=== PATIENT | female | born 1940 | race Caucasian/White ===

== ENCOUNTER 2018-01-13 05:31 | Observation (INO) | payer MEDICARE, OTHER ==
[~2018-01-13] VITALS: Ht 165.1 cm; Wt 62.3 kg
[2018-01-13] MEDS ORDERED: LEVO50TA5 PO (05:58)
[2018-01-13] MEDS ORDERED: LEVO75TA5 PO (05:58)
[2018-01-13] MEDS ORDERED: ASPIRIN 81 MG TABLET CHEW PO ONE (06:00)
[2018-01-13] MEDS ORDERED: SODIUM CHLORIDE FLUSH 10ML SYR IVF ONE (06:00)
[2018-01-13] MEDS ORDERED: ASPIRIN 81 MG TABLET CHEW ONE (06:07)
[2018-01-13] MEDS ORDERED: NITROGLYCERIN SINGLE TAB 0.4 MG SL ONE (06:19)
[2018-01-13] MEDS ORDERED: NITROGLYCERIN SINGLE TAB 0.4 MG SL PRN (06:30)
[2018-01-13 06:31] LABS: BASOPHILS # (AUTO) 0.05 x10^3/uL (0-0.1); BASOPHILS % (AUTO) 0 % (0-1); EOSINOPHILS # (AUTO) 0.11 x10^3/uL (0-0.4); EOSINOPHILS % (AUTO) 1 % (1-7); LYMPHOCYTES # (AUTO) 1.53 x10^3/uL (1-3.4); LYMPHOCYTES % (AUTO) 12 % (22-44); MD NO; MEAN CORPUSCULAR VOLUME 94.2 fL (80-100); MEAN PLATELET VOLUME 7.8 fL (7.4-10.4); MONOCYTES # (AUTO) 0.61 x10^3/uL (0.2-0.8); MONOCYTES % (AUTO) 5 % (2-9); NEUTROPHILS # (AUTO) 10.43 x10^3/uL (1.8-6.8); NEUTROPHILS % (AUTO) 82 % (42-75); PLATELET COUNT 237 x10^3/uL (130-400); RED BLOOD COUNT 4.53 x10^6/uL (3.82-5.3); RED CELL DISTRIBUTION WIDTH 13.9 % (9.6-15.2)
[2018-01-13 06:41] LABS: ALBUMIN 3.5 g/dL (3.4-5.0); ANION GAP 5 mmol/L (5-15); CALCIUM 8.7 mg/dL (8.5-10.1); CHLORIDE 107 mmol/L (98-107); CREATININE 1.03 mg/dL (0.55-1.02)
[2018-01-13 06:45] LABS: TROPONIN I < 0.015 ng/mL (0.000-0.045)
[2018-01-13] MEDS ORDERED: KETOROLAC 30 MG/1 ML IVPush ONE (07:00)
[2018-01-13] MEDS ORDERED: NITROGLYCERIN 0.4 MG BOTTLE (25 TABS) SL PRN (07:30)
[2018-01-13] MEDS ORDERED: KETOROLAC 30 MG/1 ML IV PRN (07:30)
[2018-01-13] MEDS ORDERED: ENALAPRILAT 1.25 MG/ML, 2ML IVPush PRN (07:30)
[2018-01-13] MEDS ORDERED: ACETAMINOPHEN 325 MG TABLET PO PRN (07:30)
[2018-01-13] MEDS ORDERED: DOCUSATE 100 MG CAPSULE PO PRN (07:30)
[2018-01-13 08:15] VITALS: BP 115/68
[2018-01-13 10:26] LABS: TROPONIN I < 0.015 ng/mL (0.000-0.045)
[2018-01-13 12:00] VITALS: BP 110/68
[2018-01-13] MEDS: ENOXAPARIN 40 MG/0.4 ML SQ SCH (12:51)
[2018-01-13] MEDS: SODIUM CHLORIDE FLUSH 10ML SYR IVF SCH ×2 (12:54→20:19)
[2018-01-13 14:36] VITALS: BP 103/64
[2018-01-13 16:20] LABS: TROPONIN I < 0.015 ng/mL (0.000-0.045)
[2018-01-13 20:43] VITALS: BP 110/65
[2018-01-14 01:28] VITALS: BP 114/66
[2018-01-14 04:47] LABS: CHOL/HDL RATIO 2.6
[2018-01-14 04:48] LABS: LDL/HDL RATIO 1.5 (0.5-3.0)
[2018-01-14] MEDS ORDERED: LEVOTHYROXINE 50 MCG TABLET PO SCH (06:00)
[2018-01-14] MEDS ORDERED: ASPIRIN 325 MG TABLET EC PO SCH (06:00)
[2018-01-14 07:16] VITALS: BP 112/69
[2018-01-14] MEDS: ENOXAPARIN 40 MG/0.4 ML SQ SCH (07:58)
[2018-01-14] MEDS: SODIUM CHLORIDE FLUSH 10ML SYR IVF SCH (07:58)
[2018-01-14 11:28] LABS: ALANINE AMINOTRANSFERASE 36 U/L (12-78); ALBUMIN 3.1 g/dL (3.4-5.0); ANION GAP 9 mmol/L (5-15); CALCIUM 8.4 mg/dL (8.5-10.1); CHLORIDE 107 mmol/L (98-107); CREATININE 0.88 mg/dL (0.55-1.02)
[2018-01-14 11:30] LABS: ALKALINE PHOSPHATASE 57 U/L (45-117); BILIRUBIN,TOTAL 0.6 mg/dL (0.2-1.0); TOTAL PROTEIN 6.9 g/dL (6.4-8.2)
[2018-01-14 12:07] VITALS: BP 100/59
[2018-01-14 12:24] LABS: BASOPHILS # (AUTO) 0.03 x10^3/uL (0-0.1); BASOPHILS % (AUTO) 0 % (0-1); EOSINOPHILS # (AUTO) 0.07 x10^3/uL (0-0.4); EOSINOPHILS % (AUTO) 1 % (1-7); LYMPHOCYTES # (AUTO) 1.73 x10^3/uL (1-3.4); LYMPHOCYTES % (AUTO) 19 % (22-44); MD NO; MEAN CORPUSCULAR HEMOGLOBIN 32.5 pg (27.0-34.8); MEAN CORPUSCULAR HGB CONC 34.2 g/dL (32.4-35.8); MEAN CORPUSCULAR VOLUME 94.9 fL (80-100); MEAN PLATELET VOLUME 8.6 fL (7.4-10.4); MONOCYTES # (AUTO) 1.01 x10^3/uL (0.2-0.8); MONOCYTES % (AUTO) 11 % (2-9); NEUTROPHILS % (AUTO) 69 % (42-75); PLATELET COUNT 224 x10^3/uL (130-400); RED BLOOD COUNT 4.37 x10^6/uL (3.82-5.3); RED CELL DISTRIBUTION WIDTH 13.8 % (9.6-15.2)
[2018-01-15] MEDS ORDERED: LEVOTHYROXINE 75 MCG TABLET PO SCH (06:00)
== END 2018-01-14 14:48 | disposition home or self-care (01) ==
LOC: ED 06:46 → INTOOBSV 06:59 → EDIP 06:59 → 5SO 08:10 → DCLOUNGE 01-14 14:41
PROVIDERS: ADMIT Internal Medicine; ATTEND Internal Medicine
DX: R07.89 Other chest pain (principal); D72.829 Elevated white blood cell count, unspecified; E03.9 Hypothyroidism, unspecified; Z87.891 Personal history of nicotine dependence
CPT/HCPCS: 36415; 71045; 78452; 80048; 80053; 80061; 82040; 84484; 85025; 85379; 93005; 93017; 96372; 99285; A9502; C9898; G0378; J1650

== ENCOUNTER 2019-11-04 20:28 | Emergency (ER) | payer MEDICARE ==
[~2019-11-04] VITALS: Ht 165.1 cm; Wt 62.0 kg
[~2019-11-04 20:28] MED LIST: LEVO50TA5 PO; LEVO75TA5 PO
[2019-11-04] MEDS ORDERED: LIDOCAINE-MPF 1%, 5ML ONE (21:09)
[2019-11-04] MEDS ORDERED: DIPH,PERTUSS(ACELL),TET VAC/PF 0.5 ML IM-VACC ONE ×2 (21:10→21:30)
[2019-11-04] MEDS ORDERED: AMOXICILLIN/CLAV 875-125MG TABLET ONE (21:17)
[2019-11-04] MEDS ORDERED: LIDOCAINE 2%, 20ML SQ ONE (21:30)
[2019-11-04] MEDS ORDERED: AMOXICILLIN/CLAV 875-125MG TABLET PO ONE (21:30)
[2019-11-04] MEDS ORDERED: NEOSPORIN OINT. PKT 1 PACKET ONE (22:14)
--- NOTE | 2019-11-04 22:39 | NUR ---
PT. WAS GIVEN DISCHARGE INSTRUCTIONS AND A SCRIPT. UNDERSTANDING VERBALIZED ALOND WITH WILLINGNESS TO COMPLY. PT.'S LEFT ANKLE WAS DRESSED. CMS CHECKS REMAIN INTACT. PT. WAS AMBULATORY WITH A STEADY GAIT TO DISCHARGE. VSS.
[2019-11-04 22:41] VITALS: BP 112/53
== END 2019-11-04 22:43 | disposition home or self-care (01) ==
LOC: ED 22:00
DX: S91.012A Laceration without foreign body, left ankle, initial encounter (principal); S91.052A Open bite, left ankle, initial encounter; W54.0XXA Bitten by dog, initial encounter; Y93.89 Activity, other specified; Y92.89 Other specified places as the place of occurrence of the external cause; Y99.8 Other external cause status
CPT/HCPCS: 12002; 73610; 90471; 90715; 99283; J3490